=== PATIENT | female | born 1980 | race Caucasian/White ===

== ENCOUNTER 2019-04-09 13:34 | Emergency (ER) | payer BC ==
[2019-04-09] MEDS ORDERED: KETOROLAC 30 MG/ML 1 ML VIAL IM STA (14:30)
--- NOTE | 2019-04-09 14:35 | ED ---
Lower Extremity Injury HPI - General Chief Complaint: Extremity Injury, Lower Stated Complaint: Calf injury Time Seen by Provider: 04/09/19 14:15 Source: patient Mode of arrival: ambulatory Limitations: no limitations - History of Present Illness Initial Comments: 38-year-old female patient presents to the emergency department today for evaluation of left calf pain and tenderness. Patient states that she was going up onto a curb when she felt a pop in the back of her leg. Patient states immediately after the pop she had development of pain to the left calf. Patient states she has severe pain with any type of ambulation. States she has increased pain when she attempts to raise her toes. She denies numbness or tingling to the foot. Denies history of injury to the leg or foot. She denies any falls or impact to the leg or ankle. Patient denies any headache, neck pain, back pain, chest pain, shortness of breath, dizziness, weakness, abdominal pain, nausea, vomiting, or difficulties with bowel movements or urination. - Related Data Previous Rx's Medication Instructions Recorded Cyclobenzaprine [Flexeril] 10 mg PO TID #14 tab 08/14/18 Ketorolac [Toradol] 10 mg PO Q6HR #20 tab 08/14/18 Ibuprofen [Motrin] 600 mg PO Q8HR PRN #30 tab 04/09/19 Allergies Allergy/AdvReac Type Severity Reaction Status Date / Time No Known Allergies Allergy Verified 08/17/18 11:15 Review of Systems ROS Statement: Those systems with pertinent positive or pertinent negative responses have been documented in the HPI. ROS Other: All systems not noted in ROS Statement are negative. Past Medical History Past Medical History: No Reported History History of Any Multi-Drug Resistant Organisms: None Reported Past Surgical History: Adenoidectomy, Ear Surgery, Tonsillectomy Past Psychological History: No Psychological Hx Reported Smoking Status: Never smoker Past Alcohol Use History: Occasional Past Drug Use History: None Reported General Exam Limitations: no limitations General appearance: alert, in no apparent distress, other (Physical well- developed, well-nourished adult female patient in no acute distress. Vital signs upon presentation are temperature 98.3F, pulse 87, respirations 18, blood pressure 128/84, pulse ox 99% on room air.) Respiratory exam: Present: normal lung sounds bilaterally. Absent: respiratory distress, wheezes, rales, rhonchi, stridor Cardiovascular Exam: Present: regular rate, normal rhythm, normal heart sounds. Absent: systolic murmur, diastolic murmur, rubs, gallop, clicks Extremities exam: Present: full ROM, tenderness (To the posterior calf.), normal capillary refill, other (There is tenderness noted over the left posterior c pedrito. Patient has positive Simmond's-Stephen test. Gait is otherwise pink, warm, dry. Cap refills less than 3 seconds. Pedal and posttibial pulses are 2+ and equal bilaterally). Absent: normal inspection, pedal edema, joint swelling, calf tenderness Neurological exam: Present: alert, oriented X3, CN II-XII intact Psychiatric exam: Present: normal affect, normal mood Skin exam: Present: warm, dry, intact, normal color. Absent: rash Course Vital Signs 04/09/19 04/09/19 13:54 14:56 Temperature 98.3 F 98.1 F Pulse Rate 87 82 Respiratory 18 16 Rate Blood Pressure 128/84 127/80 O2 Sat by Pulse 99 98 Oximetry Medical Decision Making - Medical Decision Making 38-year-old female patient presents to the emergency department today for evaluation of left calf pain. Physical examination is read tenderness over the left calf. No redness or swelling noted. Neurovascular status is intact. She did have a positive Cartwright Stephen test which is concerning for Achilles tendon rupture. She'll be discharged to follow up with end user support specialist for further evaluation as soon as possible. Return parameters were discussed in detail. She verbalizes understanding and agrees with this plan. Disposition Clinical Impression: Rupture of tendon Disposition: HOME SELF-CARE Condition: Good Instructions (If sedation given, give patient instructions): Tendon Rupture (ED) Additional Instructions: Rest, ice, elevate the extremity. Remaining nonweightbearing until follow-up with orthopedic specialty. Return to the emergency department immediately for any new, worsening, or concerning symptoms. Prescriptions: Ibuprofen [Motrin] 600 mg PO Q8HR PRN #30 tab PRN Reason: Pain Is patient prescribed a controlled substance at d/c from ED?: No Referrals: Woodrow Rowe MD [Primary Care Provider] - 1-2 days Waldemar Miramontes MD [Medical Doctor] - 1-2 days Time of Disposition: 14:34
[2019-04-09 14:57] VITALS: BP 127/80; PULSE 82; RESP 16; TEMP 98.1
== END 2019-04-09 14:56 | disposition home or self-care (01) ==
LOC: EC 13:34
DX: S86.912A Strain of unspecified muscle(s) and tendon(s) at lower leg level, left leg, initial encounter (principal); X50.9XXA Other and unspecified overexertion or strenuous movements or postures, initial encounter
CPT/HCPCS: 99283; 96372; J1885

== ENCOUNTER → 2019-05-18 | Outpatient (CLI) | payer BC ==
--- NOTE | 2019-05-18 11:52 | US ---
EXAMINATION TYPE: US venous doppler duplex LE LT DATE OF EXAM: 05/18/2019 10:15 AM COMPARISON: NONE CLINICAL HISTORY: M79.662 PAIN IN LT LOWER LEG,S86.112D MUSCLE STRAIN. SIDE PERFORMED: Left TECHNIQUE: The lower extremity deep venous system is examined utilizing real time linear array sonog waylon with graded compression, doppler sonography and color-flow sonography. VESSELS IMAGED: External Iliac Vein (EIV) Common Femoral Vein Deep Femoral Vein Greater Saphenous Vein * Femoral Vein Popliteal Vein Small Saphenous Vein * Proximal Calf Veins (* superficial vessels) Left Leg: Negative for DVT IMPRESSION: 1. Left lower extremity ultrasound negative for deep venous thrombosis.
== END | disposition home or self-care (01) ==
LOC: RADUSWWP 10:12
PROVIDERS: ATTEND Orthopaedic Surgery
DX: I80.9 Phlebitis and thrombophlebitis of unspecified site (principal); S86.112D Strain of other muscle(s) and tendon(s) of posterior muscle group at lower leg level, left leg, subsequent encounter

== ENCOUNTER → 2022-06-20 | Outpatient (CLI) | payer BC ==
--- NOTE | 2022-06-21 07:49 | MM ---
Reason for Exam: Screening (asymptomatic). Baseline mammogram. Patient History: Menarche at age 13. First Full-Term at age 29. Patient has history of breast feeding. Currently using Hormonal Contraceptives, for 15 years. Maternal aunt had breast cancer under age 50. Risk Values: Sandra 5 year model risk: 0.6%. NCI Lifetime model risk: 11.1%. Prior Study Comparison: Patient's first Mammogram. Tissue Density: There are scattered fibroglandular densities. Findings: Analyzed By CAD. There is possible 6 to 7 mm obscured mass in the posterior outer right breast and possible 7 mm lobulated mass in the anterior slightly inner right breast. Further workup advised. Overall Assessment: Incomplete: need additional imaging evaluation, BI-RAD 0 Management: Special View Mammogram of the right breast. Return for additional views. Electronically signed and approved by: Huseyin Gaines M.D.
== END | disposition home or self-care (01) ==
LOC: RADMAMWWP 16:17
PROVIDERS: ATTEND Family Medicine
DX: Z12.31 Encounter for screening mammogram for malignant neoplasm of breast (principal); Z80.3 Family history of malignant neoplasm of breast
CPT/HCPCS: 77067

== ENCOUNTER → 2022-06-26 | Outpatient (CLI) | payer BC ==
--- NOTE | 2022-06-26 14:46 | MM ---
Reason for Exam: Additional evaluation requested from abnormal screening. Last screening mammogram was performed less than 1 month ago. Patient History: Menarche at age 13. First Full-Term at age 29. Patient has history of breast feeding. Currently using Hormonal Contraceptives, for 15 years. Maternal aunt had breast cancer under age 50. Risk Values: Sandra 5 year model risk: 0.6%. NCI Lifetime model risk: 11.1%. Prior Study Comparison: 06/20/2022 Bilateral MG screening mammo w CAD, [facility]. Tissue Density: Right: There are scattered fibroglandular densities. Findings: Analyzed By CAD. Persistent circumscribed lobulated mass within the lower inner right breast measuring 7 mm at anterior depth. The other suspected mass within the posterior outer right breast disperses with compression. Overall Assessment: Incomplete: need additional imaging evaluation, BI-RAD 0 Management: Diagnostic Breast Ultrasound of the right breast. A clinical breast exam by your physician is recommended on an annual basis and results should be correlated with mammographic findings. This exam should not preclude additional follow-up of suspicious palpable abnormalities. Results were given to the patient verbally at the time of exam. Electronically signed and approved by: Jone Shaw D.O.
--- NOTE | 2022-06-26 15:16 | USB ---
Reason for Exam: Additional evaluation requested from abnormal screening. Patient History: Menarche at age 13. First Full-Term at age 29. Patient has history of breast feeding. Currently using Hormonal Contraceptives, for 15 years. Maternal aunt had breast cancer under age 50. Risk Values: Sandra 5 year model risk: 0.6%. NCI Lifetime model risk: 11.1%. Technique: Method: Targeted. Prior Study Comparison: 06/20/2022 Bilateral MG screening mammo w CAD, [facility]. Findings: The lower inner quadrant of the right breast, the axilla of the right breast and the retroareolar of the right breast were scanned. Targeted ultrasound of the right breast from 3-6 o'clock was performed with additional evaluation of the nipple and axilla. No solid or cystic mass identified corresponding to mammogram. Overall Assessment: Probably benign, BI-RAD 3 Management: Diagnostic Mammogram of the right breast in 6 months. Diagnostic Breast Ultrasound of the right breast in 6 months. A clinical breast exam by your physician is recommended on an annual basis and results should be correlated with mammographic findings. This exam should not preclude additional follow-up of suspicious palpable abnormalities. Results were given to the patient verbally at the time of exam. Electronically signed and approved by: Jone Shaw D.O.
== END | disposition home or self-care (01) ==
LOC: RADMAMWWP 14:14
PROVIDERS: ATTEND Family Medicine
DX: R92.8 Other abnormal and inconclusive findings on diagnostic imaging of breast (principal); Z80.3 Family history of malignant neoplasm of breast
CPT/HCPCS: 77061; 77065

== ENCOUNTER → 2022-12-30 | Outpatient (CLI) | payer BC | END | disposition home or self-care (01) | LOC: RADUSWWP 09:00 | PROVIDERS: ATTEND Family Medicine | DX: Z53.9 Procedure and treatment not carried out, unspecified reason (principal) ==

== ENCOUNTER → 2023-06-30 | Outpatient (CLI) | payer BC ==
--- NOTE | 2023-06-30 15:04 | MM ---
Reason for Exam: Follow-up at short interval from prior study. Last screening mammogram was performed 12 month(s) ago. Patient History: Menarche at age 13. First Full-Term at age 29. Patient has history of breast feeding. Currently using Hormonal Contraceptives, for 15 years. Maternal aunt had breast cancer under age 50. Risk Values: Sandra 5 year model risk: 0.7%. NCI Lifetime model risk: 11.0%. Prior Study Comparison: 06/20/2022 Bilateral MG screening mammo w CAD, [facility]. 06/26/2022 Right US breast workup limited RT, [facility]. 06/26/2022 Right MG 3D work up w/cad RT, [facility]. 12/30/2022 Right MG 3D diag mammo w/cad RT, [facility]. 12/30/2022 Right US breast limited RT, [facility]. Tissue Density: The breasts are heterogeneously dense, which may obscure small masses. Findings: Analyzed By CAD. The pattern is symmetrical. No significant interval changes are evident. There is a persistent stable appearing lobular density anterior right breast. No suspicious groups of microcalcifications, spiculated or lobular masses, architectural distortion or other secondary signs of malignancy are mammographically apparent. Overall Assessment: Incomplete: need additional imaging evaluation, BI-RAD 0 Management: Diagnostic Breast Ultrasound of the right breast. A negative mammogram report should not preclude additional follow up of suspicious palpable abnormalities. Patient should continue monthly self breast exam. A clinical breast exam by your physician is recommended on an annual basis and results should be correlated with mammographic findings. Electronically signed and approved by: Rosendo Garcia D.O. Radiologis
--- NOTE | 2023-06-30 16:53 | USB ---
Reason for Exam: Follow-up at short interval from prior study. Patient History: Menarche at age 13. First Full-Term at age 29. Patient has history of breast feeding. Currently using Hormonal Contraceptives, for 15 years. Maternal aunt had breast cancer under age 50. Risk Values: Sandra 5 year model risk: 0.7%. NCI Lifetime model risk: 11.0%. Technique: Method: Targeted. Prior Study Comparison: 06/20/2022 Bilateral MG screening mammo w CAD, [facility]. 06/26/2022 Right MG 3D work up w/cad RT, [facility]. 12/30/2022 Right MG 3D diag mammo w/cad RT, [facility]. Findings: The lower inner quadrant of the right breast, the axilla of the right breast and the retroareolar of the right breast were scanned. No solid or cystic masses are identified.. There is prominence of subareolar ducts. Findings are stable from comparison. Overall Assessment: Benign, BI-RAD 2 Management: Screening Mammogram of both breasts in 1 year. A clinical breast exam by your physician is recommended on an annual basis and results should be correlated with mammographic findings. This exam should not preclude additional follow-up of suspicious palpable abnormalities. Results were given to the patient verbally at the time of exam. Electronically signed and approved by: Rosendo Garcia D.O. Radiologis
== END | disposition home or self-care (01) ==
LOC: RADMAMWWP 14:26
PROVIDERS: ATTEND Family Medicine
DX: R92.8 Other abnormal and inconclusive findings on diagnostic imaging of breast (principal); Z80.3 Family history of malignant neoplasm of breast
CPT/HCPCS: 77062; 77066